=== PATIENT | male | born 1995 | race Caucasian/White ===

== ENCOUNTER 2019-03-09 13:25 | Emergency (ER) | payer BC ==
[~2019-03-09] VITALS: Ht 180.3 cm; Wt 75.7 kg
[2019-03-09] MEDS ORDERED: PREPCRE TOP (13:32)
[2019-03-09 15:56] LABS: BASO % 0.6 % (0.0-1.0); EOS # 0.1 10^3/uL (0.0-0.50); EOS % 1.4 % (0.0-3.0); HEMATOCRIT 43.4 % (42.0-52.0); HEMOGLOBIN 14.7 g/dl (13.5-17.5); LYMPH # 1.4 10^3/uL (1.5-6.5); LYMPH % 20.5 % (24.0-44.0); MEAN CORPUSCULAR HEMOGLOBIN 31.2 pg (27.0-33.0); MEAN CORPUSCULAR HGB CONC 33.9 g/dl (32.0-36.5); MEAN CORPUSCULAR VOLUME 92.1 fl (80.0-96.0); MONO # 0.4 10^3/uL (0.0-0.8); MONO % 6.3 % (0.0-5.0); NEUTROPHILS # 4.7 10^3/uL (1.8-7.7); NEUTROPHILS % 70.9 % (36.0-66.0); PLATELET COUNT, AUTOMATED 266 10^3/uL (150-450); RED BLOOD COUNT 4.71 10^6/uL (4.30-6.10); WHITE BLOOD COUNT 6.6 10^3/uL (4.0-10.0)
[2019-03-09] MEDS ORDERED: ANUS25SU PR (16:48)
[2019-03-09 17:07] VITALS: BP 131/76
--- NOTE | 2019-03-10 09:17 | REP ---
KUB ABDOMEN AND PELVIS: Two KUB films of the abdomen and pelvis performed. Mild scattered air and fecal material is seen throughout the colon without evidence of fecal impaction. There is no small bowel obstruction. There are phleboliths in the left pelvis. There is partial sacralization of L5. Electronically Signed by Eran Gipson MD 03/10/2019 09:35 A
== END 2019-03-09 17:09 | disposition home or self-care (01) ==
LOC: M ED 13:25
DX: K64.5 Perianal venous thrombosis (principal); K59.04 Chronic idiopathic constipation; F17.210 Nicotine dependence, cigarettes, uncomplicated; Z80.0 Family history of malignant neoplasm of digestive organs; Z79.899 Other long term (current) drug therapy

== ENCOUNTER 2020-08-07 18:25 | Observation (INO) | payer BC, SELFPAY ==
[~2020-08-07] VITALS: Ht 180.3 cm; Wt 82.6 kg
[~2020-08-07 18:25] MED LIST: ANUS25SU PR; PHEN26CR TOP
[2020-08-07] MEDS ORDERED: MORPHINE 10 MG/ML 1ML VIAL (J2270) IM ONE (18:45)
[2020-08-07] MEDS ORDERED: MORPHINE 4 MG/ML 1ML VIAL/SYRINGE (J2270) IV PRN (19:15)
[2020-08-07] MEDS ORDERED: ONDANSETRON 4MG/2ML VIAL IV ONE ×2 (19:30→20:45)
[2020-08-07 19:47] LABS: BASO # 0.1 10^3/uL (0.0-0.2); BASO % 0.4 % (0.0-1.0); EOS # 0.2 10^3/uL (0.0-0.5); EOS % 1.2 % (0.0-3.0); HEMATOCRIT 45.3 % (42.0-52.0); HEMOGLOBIN 15.1 g/dl (13.5-17.5); LYMPH # 2.3 10^3/uL (1.5-5.0); LYMPH % 18.7 % (24.0-44.0); MEAN CORPUSCULAR HEMOGLOBIN 30.9 pg (27.0-33.0); MEAN CORPUSCULAR HGB CONC 33.3 g/dl (32.0-36.5); MEAN CORPUSCULAR VOLUME 92.8 fl (80.0-96.0); MONO # 0.5 10^3/uL (0.0-0.8); MONO % 4.1 % (0.0-5.0); NEUTROPHILS # 9.1 10^3/uL (1.5-8.5); NEUTROPHILS % 75.2 % (36.0-66.0); PLATELET COUNT, AUTOMATED 277 10^3/uL (150-450); RED BLOOD COUNT 4.88 10^6/uL (4.30-6.10); WHITE BLOOD COUNT 12.1 10^3/uL (4.0-10.0)
--- NOTE | 2020-08-07 20:08 | REPVR ---
PROCEDURE INFORMATION: Exam: US Scrotum Exam date and time: 08/07/2020 7:17 PM Age: 25 years old Clinical indication: Scrotum pain; Additional info: Testicular pain TECHNIQUE: Imaging protocol: Real-time ultrasound of the scrotum and contents with color Doppler and image documentation. COMPARISON: No relevant prior studies available. FINDINGS: Limitations: Technically limited study due to the patient's pain tolerance and motion during the study. Right testicle: The right testicle is normal in size and echogenicity, measuring 4.4 x 2.1 x 2.8 cm. No intratesticular mass. Left testicle: The left testicle is normal in size and echogenicity, measuring 4.1 x 2.4 x 2.9 cm. No intratesticular mass. Epididymides: Normal. Scrotum: Normal. Additional findings: On initial images of each testicle, there is minimal blood flow seen in the testicular parenchyma. However, blood flow increased in each testicle during the study, and arterial flow was observed to each testicle on duplex Doppler evaluation. Venous flow was also observed on the right. IMPRESSION: 1. Technically limited study due to the patient's pain tolerance and motion during the study. 2. Testicles appear normal bilaterally. On initial images of each testicle, there is minimal blood flow seen in the testicular parenchyma. However, blood flow increased in each testicle during the study, and arterial flow was observed to each testicle on duplex Doppler evaluation. Venous flow was also observed on the right. Consider urologic consultation and close term follow-up ultrasound. Although there are no definitive findings of testicular torsion, testicular torsion with preserved flow cannot be excluded, although appearance is relatively symmetric which would be unusual. Intermittent torsion cannot be excluded with this study. Electronically signed by: Lianne Fox On 08/07/2020 20:08:12 PM
[2020-08-07 20:13] LABS: BLOOD UREA NITROGEN 16 MG/DL (7-18); CALCIUM LEVEL 9.3 MG/DL (8.5-10.1); CARBON DIOXIDE LEVEL 25 MEQ/L (21-32); CHLORIDE LEVEL 104 MEQ/L (98-107); CREATININE FOR GFR 1.13 MG/DL (0.70-1.30); GLOMERULAR FILTRATION RATE > 60.0 (>60); GLUCOSE, FASTING 151 MG/DL (70-100); POTASSIUM SERUM 3.9 MEQ/L (3.5-5.1); SODIUM LEVEL 139 MEQ/L (136-145)
[2020-08-07] MEDS ORDERED: ONDANSETRON 4MG/2ML VIAL As Ordered ONE ×2 (20:43→21:33)
--- NOTE | 2020-08-07 20:49 | SMCUROLCON ---
Urology Consultation General Date of Consultation 08/07/20 Reason For Consultation This patient is seen for Groin Pain. History of Present Illness The patient is a [25]-year-old [male] with a past medical history of intermittent mild testicular pain, who had sudden onset of severe (10/) pain about 5 pm - shortly after eating pizza. He has had repeated vomiting and has ongoing nausea. No d/c or irritative sx. No trauma. U/S shows compromised flow which is fairly symmetric. Exam was limited by pt movement/discomfort. Past Medical History Medical History negative Surgical Hstory Ear tubes 2003 Family History Significant Family History: No pertinent family hx Social History Social History single; NS, but smokes marijuana - last ~ 6 hours ago Medications Current Medications Current Medications Medications (Trade) Dose Ordered Sig/Balta Route PRN Reason Start Time Stop Time Status Last Admin Dose Admin Morphine Sulfate (Morphine Sulfate Inj) 4 mg Q30M PRN IV SEVERE PAIN (PS 8-10) 08/07/20 19:15 08/07/20 19:33 No chronic meds Allergies Allergies: Coded Allergies: No Known Allergies (Unverified , 03/09/19) Review of Systems General: Reports: Other Symptoms (N/V); Denies: ROS Unobtainable, Chills, Night Sweats, Fatigue, Malaise, Normal Appetite Constitutional: Denies: Fever, Chills, Sweats, Weakness, Malaise, Other Eyes: Denies: Pain, Vision change, Conjunctivae inflammation, Eyelid inflammation, Redness, Other ENT: Denies: Head Aches, Ear Pain, Dysphagia, Sinus Congestion, Post Nasal Drip, Sore Throat, Epistaxis, Other Symptoms Skin: Denies: Rash, Lesions, Jaundice, Bruising, Itching, Dry, Breakdown, Nail Changes, Other Pulmonary: Denies: Dyspnea, Cough, Pleuritic Chest Pain, Other Symptoms Cardiovascular: Denies Chest Pain, Denies Palpitations, Denies Orthopnea, Denies Paroxysmal Noc. Dyspnea, Denies Edema, Denies Lt Headedness, Denies Other Symptoms Gastrointestinal: Reports: Nausea, Vomiting; Denies: Abdominal Pain, Diarrhea, Constipation, Melena, Hematochezia, Other Symptoms Genitourinary: Denies: Dysuria, Frequency, Incontinence, Hematuria, Retention, Other Symptoms Hematologic: Denies: Bruising, Bleeding Excessively, Petecchia, Purpura, Enlarged Lymph Nodes, Other Hematologic Endocrine: Denies: Polydipsia, Polyphagia, Polyuria, Heat Intolerance, Cold Intolerance, Other Endocrine Sx Musculoskeletal: Denies: Neck Pain, Back Pain, Shoulder Pain, Arm Pain, Hand Pain, Leg Pain, Foot Pain, Joint Pain, Muscle Pain, Spasms, Other Symptoms Neurological: Denies: Weakness, Numbness, Incoordination, Change in Speech, Confusion, Seizures, Other Symptoms Psych: Denies: Mood Normal, Anxiety, Depression, Memory Issues, Thoughts of Self Harm, Anger, Thoughts of harming Other, Other Psych Physical Examination General Exam: Alert, Cooperative, Moderate Distress EYE EXAM: PERRLA, Conjunctiva & lids normal, EOMI ENT EXAM: Atraumatic, Pinna Normal Neck Exam: Supple Chest Exam: Clear to auscultation, Normal air movement Heart Exam: Rate Normal, Regular Rhythm Abdomen Exam: Normal Bowel Sounds Male Exam High riding testes bilaterally. No cremasteric reflexes. R very tender, making exam difficult. Lie seems to be horizontal on R; nl L Extremity Exam: Normal Pulses Skin Exam: Nl turgor and temperature Neuro Exam: Normal Speech, Normal Tone, Cranial Nerves 3-12 NL, Reflexes 2+ Psych Exam: Anxiety, Oriented x 3, Other (anxious) Vital Signs/I&O Vital Signs Date Time Temp Pulse Resp B/P (MAP) Pulse Ox O2 Delivery O2 Flow Rate FiO2 08/07/20 19:33 18 08/07/20 18:32 08/07/20 18:25 96.6 63 97 Room Air Laboratory Data 24H Labs Laboratory Tests 2 08/07/20 19:27: Immature Granulocyte % (Auto) 0.4, Neutrophils (%) (Auto) 75.2H, Lymphocytes (%) (Auto) 18.7L, Monocytes (%) (Auto) 4.1, Eosinophils (%) (Auto) 1.2, Basophils (%) (Auto) 0.4, Neutrophils # (Auto) 9.1H, Lymphocytes # (Auto) 2.3, Monocytes # (Auto) 0.5, Eosinophils # (Auto) 0.2, Basophils # (Auto) 0.1, Nucleated Red Blood Cells % (auto) 0.0, Urine Color YELLOW, Urine Appearance HAZY, Urine pH 5.0, Urine Specific [place] 1.026, Urine Protein 1+H, Urine Glucose (UA) NEGATIVE, Urine Ketones TRACEH, Urine Blood 2+H, Urine Nitrite NEGATIVE, Urine Bilirubin NEGATIVE, Urine Urobilinogen 0.2, Urine Leukocyte Esterase TRACEH, Urine WBC (Auto) 7H, Urine RBC (Auto) 2, Urine Hyaline Casts (Auto) 0, Urine Bacteria (Auto) NEGATIVE, Urine Squamous Epithelial Cells 0, Urine Mucus (Auto) MODERATE, Urine Sperm (Auto) , Anion Gap 10, Glomerular Filtration Rate > 60.0, Calcium Level 9.3 08/07/20 19:48: Covid negative CBC/BMP Laboratory Tests 08/07/20 19:27 Microbiology Microbiology 08/07/20 Urine Culture, Received Pending Assessment A: Acute Scrotum - Right testicular torsion P: Scrotal exploration; B scrotal orchiopexy. Orchiectomy if testis is non- viable. Risks including anesthesia; infection; re-torsion; testis loss and risks related to recent eating were discussed with the patient. He wishes to proceed. His questions were answered. Time Spent on Consult: Time Spent / Consult (Minutes): 40 MAKAYLA MAYS MD Aug 07, 2020 20:49
[2020-08-07 21:02] LABS: CHLAMYDIA DNA AMPLIFICATION NEGATIVE (NEGATIVE); GC DNA AMPLIFICATION NEGATIVE (NEGATIVE)
[2020-08-07] MEDS ORDERED: ROCURONIUM BROMIDE 50 MG/5 ML VIAL As Ordered ONE (21:26)
[2020-08-07] MEDS ORDERED: propofoL 200 MG/20 ML VIAL As Ordered ONE (21:26)
[2020-08-07] MEDS ORDERED: LIDOCAINE 2% 100MG/5ML SDV (FOR ANES.) As Ordered ONE (21:26)
[2020-08-07] MEDS ORDERED: SUCCINYLCHOLINE 100 MG/5 ML SYRINGE (J0330) As Ordered ONE (21:26)
[2020-08-07] MEDS ORDERED: MIDAZOLAM INJ 2MG/2ML VIAL (J2250 PER 1MG) As Ordered ONE (21:27)
[2020-08-07] MEDS ORDERED: fentaNYL 100 MCG/2 ML INJECTION (J3010) As Ordered ONE ×2 (21:27→21:55)
[2020-08-07] MEDS ORDERED: dexameTHASONE 4 MG/ML 1ML VIAL (J1100 PER 1MG) As Ordered ONE ×2 (21:33→22:05)
[2020-08-07] MEDS ORDERED: KETOROLAC 60MG 2ML VIAL As Ordered ONE (21:33)
[2020-08-07] MEDS ORDERED: GLYCOPYRROLATE INJ 0.2 MG/ML 2 ML VIAL As Ordered ONE (21:39)
[2020-08-07] MEDS ORDERED: METOCLOPRAMIDE INJ 10MG/2ML VIAL (J2765 PER 1) As Ordered ONE (22:04)
[2020-08-07] MEDS ORDERED: ACETAMINOPHEN 1000MG 100ML IV BTL (OFIRMEV) (J0131 PER 10MG) As Ordered ONE (22:19)
[2020-08-07] MEDS ORDERED: NORCO, ANEXSIA 5/325MG TABLET (HYDROcodone/ACETAMINOPHEN) PO PRN (22:45)
[2020-08-07] MEDS ORDERED: zolPIDEM TARTRATE 5 MG TAB PO PRN (22:45)
[2020-08-07] MEDS ORDERED: MOM 30ML SUSPENSION UDC PO PRN (22:45)
[2020-08-07] MEDS ORDERED: KETOROLAC 30 MG/ML 1ML VIAL IV PRN (22:45)
[2020-08-07] MEDS ORDERED: ACETAMINOPHEN TAB 650MG DOSE (2X325MG) PO PRN (22:45)
[2020-08-07] MEDS ORDERED: METOCLOPRAMIDE INJ 10MG/2ML VIAL (J2765 PER 1) IV PRN (22:45)
[2020-08-07 23:40] VITALS: BP 145/78
[2020-08-07 23:50] VITALS: BP 146/72
[2020-08-08 00:10] VITALS: BP 146/77
[2020-08-08] MEDS ORDERED: fentaNYL 100 MCG/2 ML INJECTION (J3010) IV PRN (00:15)
[2020-08-08] MEDS ORDERED: PERCOCET 5MG/325MG TAB PO PRN (00:15)
[2020-08-08] MEDS ORDERED: MEPERIDINE INJ 25 MG/ML VIAL (J2175) IV PRN (00:15)
[2020-08-08] MEDS ORDERED: METOCLOPRAMIDE INJ 10MG/2ML VIAL (J2765 PER 1) IV PRN (00:15)
[2020-08-08] MEDS ORDERED: ONDANSETRON 4MG/2ML VIAL IV PRN (00:15)
[2020-08-08] MEDS ORDERED: LR 1,000 ML IV SCH ×2 (00:15)
[2020-08-08 01:10] VITALS: BP 144/74
[2020-08-08 02:00] VITALS: BP 152/92
[2020-08-08 03:10] VITALS: BP 129/60
[2020-08-08 04:10] VITALS: BP 127/55
[2020-08-08 06:00] VITALS: BP 150/75
[2020-08-08 06:25] LABS: BASO % 0.1 % (0.0-1.0); HEMATOCRIT 43.4 % (42.0-52.0); HEMOGLOBIN 14.5 g/dl (13.5-17.5); LYMPH # 0.7 10^3/uL (1.5-5.0); LYMPH % 6.6 % (24.0-44.0); MEAN CORPUSCULAR HEMOGLOBIN 31.1 pg (27.0-33.0); MEAN CORPUSCULAR HGB CONC 33.4 g/dl (32.0-36.5); MEAN CORPUSCULAR VOLUME 93.1 fl (80.0-96.0); MONO # 0.1 10^3/uL (0.0-0.8); MONO % 1.3 % (0.0-5.0); NEUTROPHILS # 9.7 10^3/uL (1.5-8.5); NEUTROPHILS % 91.5 % (36.0-66.0); PLATELET COUNT, AUTOMATED 270 10^3/uL (150-450); RED BLOOD COUNT 4.66 10^6/uL (4.30-6.10); WHITE BLOOD COUNT 10.6 10^3/uL (4.0-10.0)
[2020-08-08 06:52] LABS: CALCIUM LEVEL 9.2 MG/DL (8.5-10.1); CREATININE FOR GFR 1.52 MG/DL (0.70-1.30); GLOMERULAR FILTRATION RATE 58.9 (>60); POTASSIUM SERUM 4.9 MEQ/L (3.5-5.1)
[2020-08-08 09:32] LABS: AMPHETAMINES LEVEL URINE NEGATIVE (NEGATIVE); BARBITURATES URINE NEGATIVE (NEGATIVE); BENZODIAZEPINES URINE NEGATIVE (NEGATIVE); CANNABINOIDS URINE POSITIVE (NEGATIVE); COCAINE METABOLITE URINE NEGATIVE (NEGATIVE); METHADONE URINE NEGATIVE (NEGATIVE); OPIATES URINE POSITIVE (NEGATIVE); PHENCYCLIDINE URINE NEGATIVE (NEGATIVE)
--- NOTE | 2020-08-09 08:41 | RO ---
OPERATIVE NOTE DATE OF OPERATION: 08/07/2020 PREOPERATIVE DIAGNOSIS: Acute scrotum with suspected right torsion. POSTOPERATIVE DIAGNOSIS: Acute scrotum with no definite torsion. PROCEDURES PERFORMED: Scrotal exploration and scrotal orchiopexy. SURGEON: Hamzah Bobo MD ANESTHESIA: General. INDICATIONS: This 25-year-old had acute onset of right testicular pain not associated with activity between 5 and 6 p.m. tonight. This was associated with nausea and vomiting. There was no lateralizing flank pain. He presented to the emergency room where ultrasound showed diminished flow on the right and intermittent torsion was suspected. There was also some decreased flow on the left. The patient's urinalysis was clear, WBC was 12. PROCEDURE: After obtaining informed consent from the patient, he was taken to the operating room, where after adequate anesthetic he was prepped and draped in usual manner. Transverse scrotal incision was made and deepened through the scrotal tunics exposing each of the testicles in sequence. On delivery of the testicles into the wound there was noted to be no evidence of torsion of the spermatic cords. There were some adhesions noted on each testicle raising the possibility of remote history of trauma on each side. A classic turpin clapper deformity was not noted. After thoroughly checking the scrotum and testes they were replaced in the scrotum and as a precaution we did go ahead and perform bilateral scrotal orchiopexy using three-point fixation of 3-0 Prolene interrupted sutures medially, laterally, and inferiorly. Wound closure was with running 3-0 chromic on the dartos fascia and horizontal mattress 3-0 chromic on the skin. Sterile dressings were applied. The patient was transferred to the recovery room in satisfactory condition where an ice pack was promptly placed. DISPOSITION: He is admitted for overnight observation. COMPLICATIONS: None. EBL: Less than 10 mL.
--- NOTE | 2020-08-09 09:22 | IPNPDOC ---
Subjective Review oF Systems Chief Complaint The patient is a 25-year-old male admitted with a reason for visit of Acute Pain In Scrotum. Events since Last Encounter N/A Objective Vital Signs/I&O Vital Signs Date Time Temp Pulse Resp B/P (MAP) Pulse Ox O2 Delivery O2 Flow Rate FiO2 08/08/20 06:00 97.9 84 20 150/75 (100) 95 Room Air I&O- Last 24 Hours up to 6 AM 08/09/20 06:00 Intake Total 360 ml Balance 360 ml Laboratory Data Microbiology Microbiology 08/07/20 Urine Culture - Final, Complete Assessment/Plan Date Seen The patient left the hospital AMA without being seen on 08/08/2020 Plan/VTE VTE Prophylaxis Ordered?: Yes VTE Exclusion Pharmacological: Bleeding Risk Plan Pt left AMA. Refused all f/u and advice. MAKAYLA MAYS MD Aug 09, 2020 09:22
== END 2020-08-08 08:32 | disposition left against medical advice (07) ==
LOC: M ED 18:25 → M SDC 20:35 → M ED INP 20:36 → M MSPAV 23:20 → UNDODISOB 08-08 08:32
PROVIDERS: ADMIT Urology; ATTEND Urology
DX: N44.00 Torsion of testis, unspecified (principal); F17.210 Nicotine dependence, cigarettes, uncomplicated; F12.10 Cannabis abuse, uncomplicated
CPT/HCPCS: 36415; 54640; 76870; 80048; 80307; 81001; 85025; 87086; 87661; 93976; 96372; 96374; 96375; 96376; 99284; J0131; J0330; J1100; J1885; J2250; J2270; J2405; J2765; J3010; U0002

== ENCOUNTER 2020-12-21 10:11 | Emergency (ER) | payer OTHER, SELFPAY ==
[~2020-12-21] VITALS: Ht 177.8 cm; Wt 78.0 kg
--- NOTE | 2020-12-21 11:13 | REP ---
INDICATION: CP. COMPARISON: No comparison chest x-ray. TECHNIQUE: Two views.. FINDINGS: The lungs are well inflated and free of infiltrate. The pleural angles are sharp. The heart size is normal. Pulmonary vasculature is not increased. No significant bony abnormality is seen. IMPRESSION: Negative chest x-ray. <Electronically signed by Rashaad Hutchinson > 12/21/20 [id number]
[2020-12-21] MEDS ORDERED: GI COCKTAIL 50ML BTL(HYOSCYAMINE/MAALOX/LIDOCAINE VISCOUS)(1:3:1) PO ONE (11:30)
[2020-12-21 11:44] LABS: HEMATOCRIT 43.3 % (42.0-52.0); HEMOGLOBIN 14.2 g/dl (13.5-17.5); MEAN CORPUSCULAR HEMOGLOBIN 31.2 pg (27.0-33.0); MEAN CORPUSCULAR HGB CONC 32.8 g/dl (32.0-36.5); MEAN CORPUSCULAR VOLUME 95.2 fl (80.0-96.0); PLATELET COUNT, AUTOMATED 267 10^3/uL (150-450); RED BLOOD COUNT 4.55 10^6/uL (4.30-6.10); WHITE BLOOD COUNT 5.7 10^3/uL (4.0-10.0)
[2020-12-21 12:15] LABS: ALBUMIN 4.1 GM/DL (3.2-5.2); ALT/SGPT 33 U/L (12-78); BILIRUBIN,TOTAL 0.4 MG/DL (0.2-1.0); BLOOD UREA NITROGEN 11 MG/DL (7-18); CALCIUM LEVEL 9.4 MG/DL (8.5-10.1); CARBON DIOXIDE LEVEL 31 MEQ/L (21-32); CHLORIDE LEVEL 104 MEQ/L (98-107); CREATININE FOR GFR 1.11 MG/DL (0.70-1.30); GLOMERULAR FILTRATION RATE > 60.0 (>60); GLUCOSE, FASTING 89 MG/DL (70-100); LIPASE 112 U/L (73-393); POTASSIUM SERUM 4.5 MEQ/L (3.5-5.1); SODIUM LEVEL 138 MEQ/L (136-145)
--- NOTE | 2020-12-21 12:48 | REP ---
INDICATION: abdominal pain, reported enlarged aorta. COMPARISON: None. TECHNIQUE: Retroperitoneal/aortic sonography. FINDINGS: Scanning through the retroperitoneum demonstrates that the abdominal aorta is normal in caliber at the level of the diaphragmatic hiatus measuring 2.2 x 2.0 cm in AP by transverse dimension respectively. The measurements of the aorta at the level of the renal artery origins is 1.9 x 1.6 cm, AP by transverse dimension respectively. The distal aorta tapers to 1.6 x 1.7 cm AP by transverse dimension. The right and left common iliac arteries are normal measuring 0.9 and 0.9 cm in AP dimension respectively. No aneurysm is seen. No periaortic disease is observed. IMPRESSION: Negative abdominal aortic sonography. <Electronically signed by Rashaad Hutchinson > 12/21/20 [id number]
[2020-12-21] MEDS ORDERED: PEPC1TAB5 PO (13:14)
[2020-12-21 13:31] VITALS: BP 135/72
--- NOTE | 2020-12-21 17:52 | ECGEPIP ---
[facility] - ED Test Date: 2020-12-21 Pat Name: THU AGUILAR Department: Room: - Gender: Male Psychology Lecturer: nissa : 1995 Requested By: Natasha Mueller Order Number: [id number] Reading MD: Natasha Mueller Measurements Intervals [place] Rate: 49 P: 57 UT: 168 QRS: 77 QRSD: 98 T: 62 QT: 408 QTc: 368 Interpretive Statements Sinus bradycardia with sinus arrhythmia no prior Electronically Signed on 12-21-2020 17:52:39 EDT by Natasha Mueller
== END 2020-12-21 13:37 | disposition home or self-care (01) ==
LOC: M ED 10:11
DX: K29.70 Gastritis, unspecified, without bleeding (principal); R00.1 Bradycardia, unspecified; F17.210 Nicotine dependence, cigarettes, uncomplicated

== ENCOUNTER → 2021-09-15 | Outpatient (REF) ==
[~2021-09-15] MED LIST changes: +PEPC1TAB5 PO
== END ==
LOC: M LABSMTC 12:48
PROVIDERS: ATTEND Pediatrics
DX: Z11.52 Encounter for screening for COVID-19 (principal)

== ENCOUNTER 2022-11-23 02:20 | Emergency (ER) | payer OTHER, SELFPAY ==
[~2022-11-23] VITALS: Ht 182.9 cm; Wt 77.3 kg
[2022-11-23] MEDS ORDERED: MORPHINE 4 MG/ML 1ML VIAL IV ONE (02:50)
[2022-11-23] MEDS ORDERED: ONDANSETRON 4MG 2ML VIAL IV ONE (02:50)
[2022-11-23] MEDS ORDERED: NS 1,000 ML IV ONE (02:50)
[2022-11-23 03:11] LABS: BASO # 0.1 10^3/uL (0.0-0.2); BASO % 0.8 % (0.0-1.0); EOS # 0.1 10^3/uL (0.0-0.5); EOS % 1.3 % (0.0-3.0); HEMATOCRIT 43.9 % (42.0-52.0); HEMOGLOBIN 15.5 g/dl (13.5-17.5); LYMPH # 1.2 10^3/uL (1.5-5.0); LYMPH % 15.6 % (24.0-44.0); MEAN CORPUSCULAR HEMOGLOBIN 32.2 pg (27.0-33.0); MEAN CORPUSCULAR HGB CONC 35.3 g/dl (32.0-36.5); MEAN CORPUSCULAR VOLUME 91.1 fl (80.0-96.0); MONO # 0.5 10^3/uL (0.0-0.8); MONO % 6.9 % (2.0-8.0); NEUTROPHILS # 5.7 10^3/uL (1.5-8.5); NEUTROPHILS % 75.1 % (36.0-66.0); PLATELET COUNT, AUTOMATED 320 10^3/uL (150-450); RED BLOOD COUNT 4.82 10^6/uL (4.30-6.10); WHITE BLOOD COUNT 7.6 10^3/uL (4.0-10.0)
[2022-11-23] MEDS ORDERED: KETOROLAC 30 MG/ML 1ML VIAL IV ONE (03:20)
[2022-11-23] MEDS ORDERED: HYDROMORPHONE HCL 0.5 MG/ 0.5 ML SYRINGE IV ONE (03:20)
[2022-11-23 03:22] LABS: INR 0.93; PROTHROMBIN TIME 12.7 SECONDS (12.5-14.5)
[2022-11-23 03:32] LABS: LIPASE 25 U/L (12-53)
[2022-11-23 03:34] LABS: ALBUMIN 4.8 G/DL (3.2-5.2); ALKALINE PHOSPHATASE 71 U/L (46-116); ALT/SGPT 27 U/L (7.0-40); AST/SGOT 36 U/L (<34); BILIRUBIN,DIRECT 0.3 MG/DL (<0.4); BILIRUBIN,TOTAL 0.9 MG/DL (0.3-1.2); BLOOD UREA NITROGEN 21 MG/DL (9-23); CALCIUM LEVEL 9.2 MG/DL (8.5-10.1); CARBON DIOXIDE LEVEL 25 MMOL/L (20-31); CHLORIDE LEVEL 102 MMOL/L (98-107); CREATININE FOR GFR 1.07 MG/DL (0.70-1.30); GLOMERULAR FILTRATION RATE > 60.0 (>60); GLUCOSE, FASTING 132 MG/DL (60-100); SODIUM LEVEL 136 MMOL/L (136-145); TOTAL PROTEIN 7.5 G/DL (5.7-8.2)
[2022-11-23] MEDS ORDERED: KETO10TAB PO (05:16)
[2022-11-23] MEDS ORDERED: FLOM0.4C39 PO (05:16)
[2022-11-23] MEDS ORDERED: TRAM50TA2 PO (05:21)
[2022-11-23 05:32] VITALS: BP 154/90
== END 2022-11-23 05:34 | disposition home or self-care (01) ==
LOC: M ED 02:20
DX: N20.0 Calculus of kidney (principal); N50.811 Right testicular pain; R16.0 Hepatomegaly, not elsewhere classified
CPT/HCPCS: 74176; 76870; 80048; 80076; 83690; 85025; 85610; 86850; 93041; 93976; 96374; 96375; 99284; J1170; J1885; J2405

== ENCOUNTER 2023-06-13 10:59 | Emergency (ER) | payer OTHER, SELFPAY ==
[~2023-06-13] VITALS: Ht 180.3 cm; Wt 78.2 kg
[~2023-06-13 10:59] MED LIST changes: +FLOM0.4C39 PO; +KETO10TAB PO; +TRAM50TA2 PO
[2023-06-13] MEDS ORDERED: LIDOCAINE 2% MDV 20ML VIAL SC ONE (13:35)
[2023-06-13] MEDS ORDERED: BOOSTRIX VACCINE (TETANUS/DIPHTH/ACEL. PERTUSSIS) 0.5ML SYR IM.IMMUN ONE (13:35)
[2023-06-13] MEDS ORDERED: NEOSPORIN OINT 0.9 GM PKT TOP ONE (13:35)
[2023-06-13] MEDS ORDERED: CEPHALEXIN 500 MG CAP PO ONE (14:20)
[2023-06-13] MEDS ORDERED: CEPH500C PO (15:25)
[2023-06-13 15:31] VITALS: BP 144/74; TEMP 98.6; O2SAT 97
== END 2023-06-13 15:33 | disposition home or self-care (01) ==
LOC: M ED 10:59
DX: S61.213A Laceration without foreign body of left middle finger without damage to nail, initial encounter (principal); Y93.H2 Activity, gardening and landscaping; Y92.9 Unspecified place or not applicable